=== PATIENT | male | born 1950 | race Caucasian/White ===

== ENCOUNTER 2024-06-09 08:52 | Outpatient (CLI) | payer OTHER, SELFPAY ==
--- NOTE | 2024-06-09 08:57 | CT_ITS ---
WS: [id number] CT FACIAL BONES HISTORY: CHRONIC SINUSITIS TECHNIQUE: Images obtained from the supraorbital location through the mandible. Soft tissue and bone windows are reviewed. Coronal and sagittal reformats have also been submitted. DLP: 1787.[address] scans at [facility] use at least one of these dose optimization techniques: automated e xposure control; mA and/or kV adjustment per patient size (includes targeted exams where dose is matc hed to clinical indication); or iterative reconstruction. COMPARISON: None available. No facial bone fractures or destructive bone lesions. Nasal bones and the zygomatic arches are normal . Normal appearance and position of the mandibular condyles. Orbits and globes are negative. No orbital fracture. Extraocular muscles are symmetric and normal in size. Mild mucoperiosteal thickening throughout the sinus cavities. There is no air-fluid level or si gnificant disease. Visualized appearance of the oropharynx on this unenhanced exam is negative. Upper cervical spine facet joint arthropathy. Small bilateral cervical chain lymph nodes. CT/CT facial bones wo con* [id number] IMPRESSION: 1. No facial bone fracture. 2. No destructive bone lesions. 3. Very mild mucoperiosteal thickening in the sinus cavities.
--- NOTE | 2024-06-09 08:57 | CT_ITS ---
WS: [id number] CT HEAD NONCONTRAST HISTORY: DAILY CHRONIC HEADACHES TECHNIQUE: Contiguous axial imaging performed through the brain in 3.0 mm imaging. Bone and soft tiss ue windows. Sagittal and coronal reformats reviewed. All CT scans at [facility] use at least one of these dose optimization techniques: automated exposure control; mA and/or kV adjustment per pa tient size (includes targeted exams where dose is matched to clinical indication); or iterative recon struction. DLP: 1787.08 mGy.cm COMPARISON: None available. No acute intracranial hemorrhage, midline shift or mass effect. Bilateral mild atrophy and small vessel disease. No mass effect. No midline shift. Ventricles: Normal size with no hydrocephalus. No inferior displacement of the cerebellar tonsils. Paranasal sinuses: As visualized are clear. Mastoid air cells: Well pneumatized. Calvarium and scalp: Skull is intact with no soft tissue edema or swelling. Calcified plaque in the intracranial carotid arteries. CT/CT head wo con* [id number] IMPRESSION: 1. No acute intracranial hemorrhage or edema. 2. Mild symmetric volume loss and atrophy with small vessel disease. No prior infarct.
== END 2024-06-09 08:53 | disposition home or self-care (01) ==
LOC: RAD 08:54
PROVIDERS: PCP Family Medicine; Visit Provider Family Medicine
DX: M47.892 Other spondylosis, cervical region (principal)
CPT/HCPCS: 70450; 70486

== ENCOUNTER 2024-07-01 14:58 | Outpatient (CLI) | payer OTHER, SELFPAY ==
--- NOTE | 2024-07-01 15:01 | USCV_ITS ---
Luther Diane Age: 74 Gender: M : 1950 Exam Date: 07/01/2024 15:13 Ordering Phys: Jen Cui MD Technologist: CT Exam [place] [facility] [place] Indication: Aortic Velocity @ SMA (cm/s) 79.3 RIGHT KIDNEY LEFT KIDNEY Velocity (cm/s) Velocity (cm/s) Sys/Arvizu Sys/Arvizu Resistive Index Resistive Index / Mid Renal Artery 46.0 / 21.5 0.53 78.7 / 34.8 0.56 Distal Renal Artery 47.6 / 19.9 0.58 40.4 / 23.0 0.43 Hilar 33.4 / 19.9 0.42 Renal Aortic Ratio 0.60 10.3 Kidney Length (cm) 11.5 FINDINGS prx renal arts are not visible bilaterally RADHAMES is not excluded other modality needed to exclude RADHAMES CONCLUSIONS Proximal Renal arteries not visualized bilaterally. Limited exam due to bowel gas Proximal Renal artery stenosis cannot be evaluated . Distal Renal arteries are patent Partially visualized Resistive indices normal bilaterally Hoang Mcarthur MD (Electronically Signed) Final Date: 05 July 2024 08:47 S
== END 2024-07-01 14:59 | disposition home or self-care (01) ==
LOC: RAD 14:59
PROVIDERS: PCP Family Medicine; Visit Provider Family Medicine
DX: I10 Essential (primary) hypertension (principal); R93.429 Abnormal radiologic findings on diagnostic imaging of unspecified kidney
CPT/HCPCS: 93975

== ENCOUNTER 2025-01-21 08:25 | Emergency (ER) | payer OTHER, MEDICARE, SELFPAY ==
--- NOTE | 2025-01-21 08:39 | XRR_ITS ---
PROCEDURE INFORMATION: Exam: XR Chest Exam date and time: 01/21/2025 9:04 AM Age: 74 years old Clinical indication: Cough and dyspnea; Additional info: Dyspnea/cough TECHNIQUE: Imaging protocol: Radiologic exam of the chest. Views: 1 view. COMPARISON: No relevant prior studies available. FINDINGS: Lungs: Unremarkable. No consolidation. Pleural spaces: Unremarkable. No pleural effusion. No pneumothorax. Heart/Mediastinum: Unremarkable. No cardiomegaly. Bones/joints: Unremarkable. XR/XR chest 1V portable [id number] IMPRESSION: No acute cardiopulmonary abnormality.
[2025-01-21 08:40] VITALS: BP 149/94; PULSE 104; RESP 17; TEMP 37.1; O2SAT 94; BMI 32.1
[2025-01-21 09:01] LABS: Basophils % 0.2 %; Eosinophils # 0.1 10^3/uL (0.0-0.8); Eosinophils % 1.3 %; Lymphocytes # 1.3 10^3/uL (0.8-4.8); Lymphocytes % 19.8 %; Mean Corpuscular Volume 88.2 fl (82-101); Mean Platelet Volume 9.6 fL (7.4-10.4); Monocytes # 0.8 10^3/uL (0.2-0.9); Monocytes % 11.8 %; Neutrophils # 4.24 10^3/uL (1.8-7.7); Neutrophils % 66.7 %; Nucleated Red Blood Cells % 0 %; Platelet Count 203 10^3/cmm (157-399); Red Blood Count 5.44 10^6/uL (3.85-5.65); Red Cell Distribution Width 12.3 % (12.1-15.1); White Blood Count 6.35 10^3/uL (3.29-11.43)
[2025-01-21] MEDS: sodium chloride 0.9% 1,000 ML 999 ML IV (09:24)
[2025-01-21 09:25] LABS: Alanine Aminotransferase 24 U/L (0-41); Albumin Level 4.1 g/dL (3.5-5.2); Alkaline Phosphatase 76 U/L (40-130); Anion Gap 19.2 (5-19); Aspartate Amino Transferase 27 U/L (0-40); Blood Urea Nitrogen 21 mg/dL (8-23); Calcium 9.6 mg/dL (8.5-10.5); Carbon Dioxide 24 mmol/L (22-29); Chloride 95 mmol/L (98-107); Creatinine Clr Calc Pharmacy 48.2836; Globulin 3.2 g/dL (1.3-4.6); Glucose 107 mg/dL (65-115); Magnesium 1.9 mg/dL (1.7-2.3); Osmolality Calculated 281 mOsm/kg (285-295); Potassium 4.2 mmol/L (3.5-5.1); Sodium 134 mmol/L (136-145); Total Bilirubin 0.6 mg/dL (0.15-1.2); Total Protein 7.3 g/dL (6.6-8.7)
--- NOTE | 2025-01-21 09:25 | W.ED.NAVMDI ---
HPI - Nausea/Vomiting/Diarrhea General: Chief complaint: Nausea/Vomiting/Diarrhea Stated complaint: n/v, diarrhea Time Seen by Provider: 01/21/25 08:35 History of Present Illness: 74-year-old male presents emergency room with nausea vomiting for the last 3 days some lower abdominal cramping. No hematochezia melena hematemesis cough cramps no dysuria urgency or frequency no shortness of breath or cough no fever. No chest pain or discomfort Associated nausea: Yes Associated symtoms: Reports nausea; Denies chest pain or dysuria Related Data Home Medications ?Medication ?Instructions ?Recorded ?Confirmed allopurinol 300 mg tablet 300 mg PO DAILY 01/21/25 01/21/25 amlodipine 5 mg tablet 5 mg PO DAILY 01/21/25 01/21/25 atorvastatin 40 mg tablet 40 mg PO DAILY 01/21/25 01/21/25 cyclobenzaprine 10 mg tablet 10 mg PO BEDTIME 01/21/25 01/21/25 fluticasone propionate 50 2 spray intranasal DAILY 01/21/25 01/21/25 mcg/actuation nasal spray,suspension levothyroxine 125 mcg tablet 125 mcg PO DAILY 01/21/25 01/21/25 meloxicam 15 mg tablet 15 mg PO DAILY 01/21/25 01/21/25 [id number] 3.3 2 drp otic (ear) BID 01/21/25 01/21/25 mg-3 mg-10 mg-0.5 mg/mL ear drops,susp (Cortisporin-TC) omeprazole 20 mg tablet,delayed 20 mg PO DAILY 01/21/25 01/21/25 release ondansetron HCl 4 mg tablet 4 mg PO Q6H PRN Nausea And Vomiting 01/21/25 01/21/25 Previous Rx's ?Medication ?Instructions ?Recorded promethazine 25 mg tablet 25 mg PO Q6H PRN nausea and 01/21/25 vomiting #20 tabs Allergies Allergy/AdvReac Type Severity Reaction Status Date / Time levofloxacin (From Levaquin) Allergy ADR-Gastrointestinal Verified 01/21/25 08:42 Upset Review of Systems Const: Denies: fever(s) or chills Card: Denies: chest pain Resp: Denies: dyspnea GI: Reports: nausea, vomiting and diarrhea; Denies: abdominal pain, hematemesis, coffee ground emesis, hematochezia or melena : Denies: dysuria, urinary frequency or urinary urgency Musc: Denies: neck pain or back pain Skin/Breast: Denies: rash PFSH ED PFSH: Medical History (Updated 01/21/25 @ 11:29 by Erik Lewis DO) Impaired glucose tolerance Physical Exam Const: COMMON NORMALS: no acute distress GENERAL APPEARANCE: cooperative and comfortable ORIENTATION/CONSCIOUSNESS: Yes awake, Yes oriented to person, Yes oriented to place and Yes oriented to time HENMT: COMMON NORMALS: normocephalic, atraumatic and hearing grossly normal bilaterally HEAD & SCALP: normocephalic and atraumatic Resp: COMMON NORMALS: normal respiratory effort, No retractions, No use of accessory muscles and clear to auscultation bilaterally AUSCULTATION: clear to auscultation bilaterally Cardio: COMMON NORMALS: regular rate, regular rhythm and No murmurs present (Cardio) RATE: regular rate RHYTHM: regular rhythm GI: COMMON NORMALS: Soft to palpation and No hepatosplenomegaly present AUSCULTATION: Yes normoactive bowel sounds PALPATION: Yes Soft to palpation, No Tenderness to palpation present (GI), No Guarding due to palpation present (GI) and Yes No hepatosplenomegaly present Extremity: COMMON NORMALS: normal to inspection, capillary refill normal, no clubbing, cyanosis or edema, no calf tenderness and no pedal edema Neuro: SENSORIUM/ORIENTATION: Yes oriented to person, Yes oriented to place and Yes oriented to time Skin: COMMON NORMALS: no rashes or lesions noted GENERAL SKIN EXAM: no rashes or lesions noted Course Vital Signs: Vital signs: Vital Signs Temperature 98.8 F 01/21/25 08:40 Pulse Rate 94 01/21/25 11:46 Respiratory Rate 17 01/21/25 08:40 Blood Pressure 149/94 01/21/25 11:46 Pulse Oximetry 95 01/21/25 11:46 Oxygen Delivery Me thod Room Air 01/21/25 10:35 MDM - Nausea/Vomiting/Diarrhea Medical Decision Making Exam unremarkable labs show mildly elevated creatinine we do not anything to compare to at previously BUN is in the normal range electrolytes are otherwise unremarkable very slight elevation of anion gap patient is feeling better after fluids will discharge home antiemetics clinical diet advance as tolerated believe he has a gastroenteritis encourage him to follow-up with to recheck his potassium within the next week. Medical Records I reviewed the patient's medical records. Lab Data 01/21/25 08:53 01/21/25 08:53 Radiology Impressions Chest X-Ray 01/21/25 08:39 IMPRESSION: No acute cardiopulmonary abnormality. Laboratory Results WBC 6.35 10^3/uL (3.29-11.43) 01/21/25 08:53 RBC 5.44 10^6/uL (3.85-5.65) 01/21/25 08:53 Hgb 16.30 g/dL (11.27-16.99) 01/21/25 08:53 Hct 48.0 % (37-53) 01/21/25 08:53 MCV 88.2 fl (82-101) 01/21/25 08:53 MCH 30.0 pg (27-33) 01/21/25 08:53 MCHC 34.0 g/dL (30-55) 01/21/25 08:53 RDW 12.3 % (12.1-15.1) 01/21/25 08:53 Plt Count 203 10^3/cmm (157-399) 01/21/25 08:53 MPV 9.6 fL (7.4-10.4) 01/21/25 08:53 Neut % (Auto) 66.7 % 01/21/25 08:53 Lymph % (Auto) 19.8 % 01/21/25 08:53 [place] % (Auto) 11.8 % 01/21/25 08:53 Eos % (Auto) 1.3 % 01/21/25 08:53 Baso % (Auto) 0.2 % 01/21/25 08:53 Neut # (Auto) 4.24 10^3/uL (1.8-7.7) 01/21/25 08:53 Lymph # (Auto) 1.3 10^3/uL (0.8-4.8) 01/21/25 08:53 [place] # (Auto) 0.8 10^3/uL (0.2-0.9) 01/21/25 08:53 Eos # (Auto) 0.1 10^3/uL (0.0-0.8) 01/21/25 08:53 Baso # (Auto) 0.0 10^3/uL (0.0-0.1) 01/21/25 08:53 Nucleated RBC % (auto) 0 % 01/21/25 08:53 Nucleated RBCs # 0.0 /100WBC 01/21/25 08:53 Sodium 134 mmol/L (136-145) L 01/21/25 08:53 Potassium 4.2 mmol/L (3.5-5.1) 01/21/25 08:53 Chloride 95 mmol/L (98-107) L 01/21/25 08:53 Carbon Dioxide 24 mmol/L (22-29) 01/21/25 08:53 Anion Gap 19.2 (5-19) H 01/21/25 08:53 BUN 21 mg/dL (8-23) 01/21/25 08:53 Creatinine 1.6 mg/dL (0.7-1.2) H 01/21/25 08:53 GFR Calculation Not Reportable 01/21/25 08:53 Glucose 107 mg/dL (65-115) 01/21/25 08:53 Calculated Osmolality 281 mOsm/kg (285-295) L 01/21/25 08:53 Calcium 9.6 mg/dL (8.5-10.5) 01/21/25 08:53 Magnesium 1.9 mg/dL (1.7-2.3) 01/21/25 08:53 Total Bilirubin 0.6 mg/dL (0.15-1.2) 01/21/25 08:53 AST 27 U/L (0-40) 01/21/25 08:53 ALT 24 U/L (0-41) 01/21/25 08:53 Alkaline Phosphatase 76 U/L (40-130) 01/21/25 08:53 Total Protein 7.3 g/dL (6.6-8.7) 01/21/25 08:53 Albumin 4.1 g/dL (3.5-5.2) 01/21/25 08:53 Globulin 3.2 g/dL (1.3-4.6) 01/21/25 08:53 Urine Color Yellow (Yellow) 01/21/25 11:29 Urine Appearance Clear (CLEAR) 01/21/25 11:29 Urine pH 5.5 (5-7) 01/21/25 11:29 Ur Specific [place] 1.025 (1.005-1.030) 01/21/25 11:29 Urine Protein 1+ (Negative) A 01/21/25 11:29 Urine Glucose (UA) Negative (Normal) 01/21/25 11:29 Urine Ketones 1+ (Negative) H 01/21/25 11:29 Urine Blood Negative (Negative) 01/21/25 11:29 Urine Nitrate Negative (Negative) 01/21/25 11: Urine Bilirubin Negative (Negative) 01/21/25 11:29 Urine Urobilinogen 1.0 mg/dL (Negative) 01/21/25 11:29 Ur Leukocyte Esterase Negative (Negative) 01/21/25 11:29 Urine RBC 0-2 /hpf (0-2) 01/21/25 11:29 Urine WBC 0-5 /hpf (0-5) 01/21/25 11:29 Ur Squamous Epith Cells 0-5 /hpf (0-5) 01/21/25 11:29 Amorphous Sediment Not Reportable 01/21/25 11:29 Urine Bacteria None seen /hpf (NONE) 01/21/25 11:29 Hyaline Casts 1.21 /lpf 01/21/25 11:29 XR interpretation done by ED provider, pending radiology final review Discharge Plan Discharge Patient Disposition: Home Clinical Impression: Gastroenteritis Condition: Stable Prescriptions: New promethazine 25 mg tablet 25 mg PO Q6H PRN (Reason: nausea and vomiting) Qty: 20 0RF No Action cyclobenzaprine 10 mg tablet 10 mg PO BEDTIME Cortisporin-TC 3.3-3-10-0.5 mg/mL drops,suspension 2 drp otic (ear) BID atorvastatin 40 mg tablet 40 mg PO DAILY meloxicam 15 mg tablet 15 mg PO DAILY ondansetron HCl 4 mg tablet 4 mg PO Q6H PRN (Reason: Nausea And Vomiting) amlodipine 5 mg tablet 5 mg PO DAILY levothyroxine 125 mcg tablet 125 mcg PO DAILY allopurinol 300 mg Tablet 300 mg PO DAILY fluticasone propionate 50 mcg/actuation spray,suspension 2 spray INTRANASAL DAILY omeprazole 20 mg Tablet,Delayed Release (Dr/Ec) 20 mg PO DAILY Discharge Orders: Discharge ED (Routine); Ordered 01/21/25 Ordered By: Erik Lewis Referrals: Jen Cui MD [Primary Care Provider, Family Practice] Discharge Diet: Usual diet Discharge Activity: Resume usual activity Patient Instructions: Gastroenteritis (ED), Opioid Safety, Pain Management Activity Restrictions/Additional Instructions: Thank you for choosing [facility] for your healthcare needs today. It is very important that you follow up as instructed or that you return to the Emergency Department should you have concerns or if your condition changes or worsens in any way. You are seen in the emergency room with complaints of nausea vomiting. Laboratory test did not show any significant acute abnormalities. Your kidney function is slightly elevated and this should be followed up with your primary care doctor. Recommend clear liquid diet for the next 2 to 3 days. You are also given antiemetics to use as needed. Chest x-ray and EKG were also normal Print Language: Yemeni Coding Level of Care Code ED Literacy Coordinator for Contreras Banerjee
[2025-01-21 10:35] VITALS: BP 147/87; PULSE 96; O2SAT 97
--- NOTE | 2025-01-21 10:56 | ECG_ITS ---
[facility] Test Date: 2025-01-21 Pat Name: Shaw Diane Department: Room: Gender: Male Wellness Program Manager: : 1950 Requested By: Erik Kee Order Number: [id number] Andrew MD: Madisyn Pond M.D. Measurements Intervals [place] Rate: 96 P: 55 AK: 168 QRS: -34 QRSD: 106 T: 52 QT: 329 QTc: 418 Interpretive Statements SINUS RHYTHM LEFT AXIS DEVIATION otherwise Normal No previous ECG available for comparison Electronically Signed On 01-21-2025 11:50:49 CDT by Madisyn Pond M.D. [email or web address]
[2025-01-21 11:39] LABS: Bilirubin Urine Negative (Negative); Blood Urine Negative (Negative); Glucose Urine UA Negative (Normal); Ketones Urine 1+ (Negative); Leukocyte Esterase Urine Negative (Negative); Nitrate Urine Negative (Negative); Protein Urine 1+ (Negative); Specific Gravity, Urine 1.025 (1.005-1.030); Urine Appearance Clear (CLEAR); Urine Color Yellow (Yellow); pH Urine 5.5 (5-7)
[2025-01-21 11:44] LABS: Add Urine Microscopic? YES; Bacteria Urine None Seen /hpf; Hyaline Casts Urine 1.21 /lpf; RBC Urine 0-2 /hpf (0-2); Squamous Epithelial Cell Urine 0-5 /hpf (0-5); WBC Urine 0-5 /hpf (0-5)
[2025-01-21 11:46] VITALS: BP 149/94; PULSE 94; O2SAT 95
== END 2025-01-21 11:47 | disposition home or self-care (01) ==
PROVIDERS: Emergency Provider Family Medicine; PCP Family Medicine
DX: K52.9 Noninfective gastroenteritis and colitis, unspecified (principal)
CPT/HCPCS: 71045; 80053; 81001; 83735; 85025; 93005; 99285; J7030

== ENCOUNTER 2025-04-12 14:21 | Emergency (ER) | payer OTHER, MEDICARE, SELFPAY ==
--- OUTSIDE RECORDS SUMMARY | 2024-12-01 08:50 | XMS_ITS ---
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 Name Role Phone THERESA THOMAS Primary Care Provider [phone] Allergies Allergen (clinical drug ingredient) Drug/Non Drug Allergy documented on EMR Reaction Allergy Type Onset Date Status Levaquin Unknown Drug Allergy Active REASON FOR VISIT LAST AWV 09/10/23, Annual Wellness Visit, Annual Medicare Wellness visit Social History Tobacco Use: Social History Observation Description Date Details (start date - stop date) Never Smoker NA - NA Tobacco Use/Smoking Question Answer Notes Tobacco use: nonsmoker Encounters Encounter Location Date Provider Diagnosis [facility] [address] [place] [address] 12/01/2024 THERESA THOMAS Essential hypertensi on I10 ; Type 2 diabetes mellitus with diabetic polyneuropathy E11.42 and Medicare annual wellness visit, subsequent Z00.00 Assessments Encounter Date Diagnosis (ICD Code) Assessment Notes Treatment Notes Treatment Clinical Notes Section Notes 12/01/2024 Essential hypertension (ICD-10 - I10) 12/01/2024 Type 2 diabetes mellitus with diabetic polyneuropathy (ICD-10 - E11.42) [facility] [place]-[id number]- 12/01/2024 Medicare annual wellness visit, subsequent (ICD-10 - Z00.00) Wellness completed vaccines discussed, Patient has been advised of eligibility for Advance Care Planning; Printed wellness recommendations are given in visit summary provided today. Plan Of Treatment Treatment Notes Assessment Notes Medicare annual wellness vis it, subsequent Wellness completed vaccines discussed, Patient has been advised of eligibility for Advance Care Planning; Printed wellness recommendations are given in visit summary provided today. Next Appt Details Follow Up: 1 Year AWV., Reas on: Provider Name:THERESA COOPER SON, 07/04/2025 01:30:00 PM, [address], [place], [address], Provider Name:THERESA COOPER SON, 01/03/2026 01:30:00 PM, [address], [place], [address], Progress Notes * BRIGIDA Luther WDOB:1950 (75 yo M)Acc No.[id number]:12/01/2024 Progress Note Patient: Luther SARAH Provider: Chilango THOMAS MD :1950 A ge:74 Y S ex:Male Date:12/01/2024 Address: [address], [id number] Subjective: * Chief Complaints: * 1 . LAST AWV 09/10/23. 2. Annual Wellness Visit. 3. Annual Medicare Wellness visit. * HPI: Alida berry Annual Visit: Here for annual Medicare wellness visit. Type of Visit - S ubsequent Annual Wellness Visit Language or Communication barrier addressed - Y es Health Risk Assessment - In the past month, how often did you experience pain? R cher - In the past month, how much has pain affected your ability to work? N ot at all - In the past month, how much has pain affected your ability to walk? A little - In the past month, how much has pain affected your relationship with other people? N ot at all - How would you describe the ease with which you can prepare your own food? E asy - How would you describe the ease with which you can bathe or clean yourself? E asy - How would you describe the ease with which you can dress yourself? E asy - How hard is it to use the toilet by yourself? N ot hard at all - How would you describe the ease with which you can do your own shopping? E asy - How would you describe the ease with which you can get around your house? E asy - How would you describe your ability to pay your bills? G ood - How would you describe your ability to plan your daily and monthly budgets? G ood - How would you describe your ability to do routine housework? G ood Immunization Status addressed - Y es Depression Screening - P HQ2 done Vision Screening - N ot done Hearing Screening D o you have trouble hearing? Y es, no gross abnormalities Fall Risk and Home Safety - N egative, no falls in the past year, no difficulty walking, or getting out of bed or chair G et Up and Go Evaluation u nder 20 seconds M edication evaluation and reconciliation performed Y es V ision screening recommended Y es L iterature offered to the patient N o Psychosocial Risks - N o overt psychosocial risks shown, observed, or mentioned Substance abuse (JACKY) risk assessed verbally, none found Behavioral Risks - P atient seems very well adjusted and no behavioral issues noted Activities of Daily Living - N ot impaired Cognitive Screening - N o overt cognitive deficiency is apparent by direct observation P atient Care Team: DME and Home health providers: None. - D r Elders. * Medical History: T ype 2 Diabetes: dx'd in 2013; controlled; complications include CKD; diet only, Hypertension (did not tolerate Metoprolol, Losartan, or Olmesartan), Sleep Apnea: was diagnosed, but does not tolerate CPAP., Gastroesophageal Reflux Disease., Osteoarthritis, Gout., Hypothyroidism, Renal Cell Carcinoma, right kidney; s/p cryotherapy Oct 2017, COLONOSCOPY- 11/11/23 Normal exam- Hx adenoma polyps in 2003, EYE EXAM: DUE NOW, [facility]: [facility], TETANUS: 2013, PNEUMONIA: 05/15/14, Pneumovax 23. 07/04/15, Prevnar 13, SHINGLES: 2013 and has had both Shingrix, COVID: moderna both doses, CURRENT MEDICAL PROVIDERS: Defence Intelligence Analyst: Dr Posada, [place], Urologist: Dr. Leiva, [facility] [place], LIVING WILL: Patient denies that he has a living will. * Surgical History: T onsillectomy; at age 9 . * Hospitalization/Major Diagno stic Procedure: C ox Kidney Treatment 11/26. * Family History: F ather: , at age 86; Cause of was Alzheimer's; Alzheimer's Disease. M other: , Hypertension; Hyperlipidemia; Transient Ischemic Attack. S ister: Medical history unknown; 2 sister(s) total. S on(s): Healthy; 2 son(s) total. D aughter(s): Healthy; 1 daughter(s) total; Allergies. * Social History: T obacco Use: T obacco Use/Smoking T obacco use: n onsmoker M igrated Social History: M igrated Social History: Occupation: Retired (Prior occupation: [employer]) Marital Status: . D rugs/Alcohol: D rugs H ave you used drugs other than those for medical reasons in the past 12 months? N o Do you drink alcohol?: No. * Allergies: L evaquin: Allergy. Objective: * Vitals: * Examination: G eneral Examination: GENERAL APPEARANCE: i n no acute distress, well developed, well nourished. EYES: p upils equal, round, reactive to light and accommodation. THROAT: c lear. NECK / THYROID: n chapo supple, full range of motion, no cervical lymphadenopathy. HEART: n o murmurs, regular rate and rhythm, S1, S2 normal.? LUNGS: c lear to auscultation bilaterally. ABDOMEN: l iver nontender, soft, nontender, nondistended.? BACK: n o kyphosis , no scoliosis. MUSCULOSKELETAL: c ervical spine normal. EXTREMITIES: n o edema. NEUROLOGIC: n onfocal , alert and oriented. PSYCH: a lert, oriented. Assessment: * Assessment: 1. E ssential hypertension - I10 (Primary) 2 . 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 M homer annual wellness visit, subsequent - Z00.00 Plan: * Treatment: * Procedure Codes: G 0439 MEDICARE ANNUAL WELLNESS SUBSEQUENT, G8427 DOC MEDS VERIFIED W/PT OR RE, G8510 NEG SCR D PT NOT ELIG F/U/PLN DOC * Preventive Medicine: MALE PREVENTIVE WELLNESS PLAN: B lood Pressure: The Recommended Frequency is: C ompleted today. V ision: The Recommended Frequency is: A nnual Glaucoma Screening with Eye Doctor. A bdominal Aortic Aneurysm: The Recommended Frequency is: O nce, between the age range of 65-75 and for those who have smoked 100+ cigarettes in lifetime C holesterol Testing: The Recommended Frequency is: R egularly beginning at age 20 with risk factors D iabetes Screening: The Recommended Frequency is: A nnually C olorectal Cancer Screening: The Recommended Frequency is: E very 10 years, Colonoscopy,Annually, Fecal Occult Blood Stool (FOBS) (either/or) P rostate Cancer Screening (Digital Rectal Exam [LARS]/Prostate Specific Antigen [PSA]): The Recommended Frequency is: A nnually, age 50 or older PSA lab draw. D epression Screening: The Recommended Frequency is: A s necessary for those with risk factors A lcohol Misuse Screening: The Recommended Frequency is: A s necessary for those with risk factors P neumococcal (Pneumonia) Vaccine: The Recommended Frequency is: p neumonia vaccine at age 50 for eligibles I nfluenza (Flu) Vaccine: The Recommended Frequency is: A nnually Usually in June. M ajor Risk Factors Your Major Risk Factors Include: R isk factors than can be modified include Inactivity, Poor eating choices, too much food and drink, clutter in the home that can cause falls, smoking and other tobacco, sleeping aids, excess salt and junk food,For best health and happiness YOU SHOULDExercise 20 minutes at least three times a weekAvoid all tobacco.If you have diabetes, keep it under control.Eat with awareness, pay attention to what and when.Take prescribed blood pressure, diabetic and cholesterol meds.Do not expect a pill to solve all of your problems.Attend to MENTAL HEALTH, avoid toxic conversations and readings. * Follow Up: 1 Year AWV. * Billing Information: * Visit Code: * Procedure Codes: G0439 MEDICARE ANNUAL WELLNESS SUBSEQUENT. G8427 DOC MEDS VERIFIED W/PT OR RE. G8510 NEG SCR D PT NOT ELIG F/U/PLN DOC. * Electronic signature of WILLY THOMAS MD on 04/12/2025 at 02:29 PM CDT Sign off status: Pending * Provider: Chilango THOMAS MD Date: 12/01/2024 Generated for Alisa pascal/Amy/Robbin on: 0 04/12/2025 02:29 PM CDT History and Physical Notes * HPI (History of Present Illness) Category Sub-Category Detail Notes Category Not es Medicare Annual Visit Type of Visit -: Subsequ ent Annual Wellness Visit Language or Communication barrier addressed -: Y es Health Risk Assessment - In the past thu, how often did you experience pain?: Rarely - In the past month, how muc h has pain affected your ability to work?: Not at all - In the past month, how much has pain a ffected your ability to walk?: A little - In the past month, how muc h has pain affected your relationship with other people?: Not at all - How would you describe the ease with which you can prepare your own food?: Easy - How would you describe the ease with which you can bathe or clean yourself?: Easy - How would you describe the ease with w hich you can dress yourself?: Easy - How hard is it to use the toilet by yo urself?: Not hard at all - How would you describe the ease with which you can do your own shopping?: Easy - How would you describe the ease with which you can get around your house?: Easy - How would you describe your ability to pay your bills?: Good - How would you describe you r ability to plan your daily and monthly budgets?: Good - How would you describe your ability to do routine housework?: Good Immunization Status addressed -: Yes Vision Screening -: Not done Depression Screening -: PHQ2 done Hearing Screening Do you have trouble hearing?: Yes, no gross abnormalities Fall Risk and Home Safety -: Negative, n o falls in the past year, no difficulty walking, or getting out of bed or chair Get Up and Go Evaluation: under 20 secon ds Medication evaluation and reconciliation performed: Yes Vision screening recommended: Yes Literature offered to the patient: No Psychosocial Risks -: No overt psychoso cial risks shown, observed, or mentioned Substance abuse (JACKY) risk assessed verbally, none found Behavioral Risks -: Patient seems mone y well adjusted and no behavioral issues noted Activities of Daily Living -: Not impaired Cognitive Screening -: No overt cognitiv e deficiency is apparent by direct observation Patient Care Team - Dr Slater Examination Category Sub-Category Detail Notes Category Not es General Examination GENERAL APPEARANCE: in no ac [place] distress, well developed, well nourished EYES: pupils equal, round, reactive to light and accommodation THROAT: clear NECK / THYROID: neck supple, full ra nge of motion, no cervical lymphadenopathy HEART: no murmurs, regular rate and rhythm, S1, S2 normal LUNGS: clear to auscultatio n bilaterally ABDOMEN: liver nontender, sof t, nontender, nondistended NEUROLOGIC: nonfocal , alert and oriented EXTREMITIES: no edema BACK: no kyphosis , no sco liosis MUSCULOSKELETAL: cervical spine medardo l PSYCH: alert, oriented
--- OUTSIDE RECORDS SUMMARY | 2024-12-21 04:30 | XMS_ITS ---
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 Name Role Phone THERESA THOMAS Primary Care Provider REASON FOR VISIT LAST WN 09/10/23 Encounters Encounter Location Date Provider Diagnosis [facility] [place] [address] [place] [address] 12/21/2024 THERESA THOMAS Plan Of Treatment Next Appt Details Provider Name:THERESA HERNANDEZ, 07/04/2025 01:30:00 PM, [address] [place], [address], Provider Name:THERESA COOPER SON, 01/03/2026 01:30:00 PM, [address], [place], [address], Progress Notes * Luther ALLRED WDOB:1950 (75 yo M)Acc No.[id number]:12/21/2024 Patient: Luther SARAH Provider: Chilango THOMAS MD :1950 A ge:74 Y S ex:Male Date:12/21/2024 [address] [id number] Subjective: * Chief Complaints: * 1 . LAST WN 09/10/23. * Medical History: Objective: * Vitals: Assessment: Plan: * Treatment: * Billing Information: * Visit Code: * Procedure Codes: * Electronic signature of WILLY THOMSA MD on 04/12/2025 at 02:30 PM CDT Sign off status: Pending * Provider: Chilango THOMSA MD Date: 0 12/21/2024 Generated for Alisa pascal/Amy/Robbin on: 0 04/12/2025 02:30 PM CDT
[2025-04-12 14:23] VITALS: BMI 32.6
--- OUTSIDE RECORDS SUMMARY | 2025-04-12 14:29 | XMS_ITS | Clinical Summary ---
Author Organization [facility] Address [address] [place] [address] Care Team Providers Care Risk Specialist Name Role Phone Carlos Loyd MD Primary Care Provider [phone] Allergies No known active allergies Medications dexlansoprazole (DEXILANT) 60 mg capsule Take 60 mg by mouth daily. Daily Active allopurinol (ZYLOPRIM) 300 mg tablet Take 300 mg by mouth daily. Daily Active levothyroxine 88 mcg Oral tablet Take 88 mcg by mouth daily autotransfusionist. Daily Active FAMOTIDINE ORAL Take by mouth. 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 Hypertrophy of nasal turbinates 06/19/2014 Nasal obstruction 06/19/2014 Unspecified sinusitis (chronic) 06/19/2014 Deviated nasal septum 06/19/2014 Immunizations Immunization Administration Dates Next Due Pneumococcal conjugate, unspecified formulation 06/06/2014 Social History Tobacco Use Types Packs/Day Years Used Date Smoking Tobacco: Never Smokeless Tobacco: Never Alcohol Use Standard Drinks/Week Comments Yes 0.8 (1 standard drink = 0.6 oz p ure alcohol) Sex and Gender Information Value Date Recorded Sex Assigned at Not on file Legal Sex Male 3:37 AM STABLE MANAGER Gender Identity Not on file Sexual Orientation Not on file Occupation Industry Job Start Date Job End Date Not on file Not on file Not on file Not on file Last Filed Vital Signs Vital Sign Reading Time Taken Comments Blood Pressure 143/93 07/21/2014 2:11 PM STABLE MANAGER Pulse 108 07/21/2014 2:11 PM STABLE MANAGER Temperature 36.4 C (97.6 F) 06/23/2014 2:30 PM CDT Respiratory Rate 18 06/23/2014 3:00 PM CDT Oxygen Saturation 96% 06/23/2014 3:00 PM CDT Inhaled Oxygen Concentration - - Weight 105.7 kg (233 lb) 07/21/2014 2:11 PM STABLE MANAGER Height 180.3 cm (5' 11 ) 07/21/2014 2:11 PM STABLE MANAGER Body Mass Index 32.5 07/21/2014 2:11 PM STABLE MANAGER Plan of Treatment Health Maintenance Due Date Last Done Comments DTAP/TDAP/TD VACCINES (1 - Tdap) 1967 PNEUMOCOCCAL VACCINE 50+ YEARS (1 of 1 - PCV) 03/11/19 98 06/06/2014 ZOSTER VACCINE (1 of 2) 1998 RSV VACCINE (60+ or ) (1 - 1-dose 75+ series) 2023 INFLUENZA VACCINE (#1) 2025 Insurance MEDICARE PART A AND B [facility] Member Subscriber Plan / Payer (Ef fective 2014-Present) Name:Shaw Diane Maryam Relation to Subscriber:Self Name:Shaw Diane Payer ID:Not on file Type:[employer] Address: [facility] [id number] [place] [id number] Care Teams Risk Specialist Relationship Specialty Start Date End Date Carlos Loyd MD [address] [facility], [place] [id number] PCP - General Family Practice 06/21/14
--- OUTSIDE RECORDS SUMMARY | 2025-04-12 14:29 | XMS_ITS | Encounter Summary ---
Author Organization [facility] Address [address] [place] [address] Care Team Providers Care Electronic Page Makeup System Operator Name Role Phone Carlos Loyd MD Primary Care Provider [phone] Reason for Visit * Reason Onset Date Comments Referral 02/04/2024 Encounter Details Date Type Department Care Team (Late st Contact Info) Description 02/04/2024 Telephone [facility] [address] [place] [address] Provider, Abstract NO ADDRESS ON FILE Referral Social History Tobacco Use Types Packs/Day Years Used Date Smoking Tobacco: Never Smokeless Tobacco: Never Alcohol Use Standard Drinks/Week Comments Yes 0.8 (1 standard drink = 0.6 oz p ure alcohol) Sex and Gender Information Value Date Recorded Sex Assigned at Not on file 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 * Telephone Encounter - Amber eSxton - 02/04/2024 2:53 PM CDT Pt returned call, would still like to schedule with Cardiology even though Dr Clark is not accepting new patients. [phone] * Telephone Encounter - Kailey Frost - 02/04/2024 1:57 PM CDT Called back ,no answer ,left vm. * Telephone Encounter - Monisha Pascual - 02/04/2024 1:12 PM CDT [facility] Call Center Communications Provider: Consult (requesting Dr Clark) MESSAGE Ready to schedule. Sometimes pt has poor cell medical office receptionist in his area and requests you leave a voice mail if no answer. [facility] Instructor Bridge: MARCIO Otto documented in this encounter Plan of Treatment Not on file documented as of this encounter Visit Diagnoses Not on filedocumented in this encounter Care Teams Electronic Page Makeup System Operator Relationship Specialty Start Date End Date Carlos Loyd MD [address] [place] [address] PCP - General Family Practice 06/21/14 documented as of this encounter
--- OUTSIDE RECORDS SUMMARY | 2025-04-12 14:29 | XMS_ITS | Patient Health Record ---
Author Organization [facility] Address [address] [place] [address] Support Name Relationship Address Phone WILMER ALLRED Guarantor Unknown [phone] Allergies Allergen (clinical drug ingredient) Drug/Non Drug Allergy documented on EMR Reaction Allergy Type Onset Date Status levofloxacin levoFLOXacin , Drug Allergy A ctive Reason For Referral No Information Medications Medication SIG (Take, Route, Frequency, Duration) Notes Start Date End Date Status Allopurinol 300 MG Oral Tablet Allopurinol 300 MG Oral Tablet 06/05/2011 Active Indomethacin 50 MG Oral Capsule Indomethacin 50 MG Oral Capsule 10/20/2017 Active Levothyroxine Sodium 0.088 MG Oral Capsule Levothyroxine Sodium 0.088 MG Oral Capsule 10/20/2017 Active Omeprazole Omeprazole 10/20/2017 Active meloxicam 15 MG Oral Tablet meloxicam 15 MG Oral Tablet 10/20/2017 Active Social History Social History Additional Details Category Social Info Options Details zzMigrated Social History Migrated Social History Smoking Status:Never smoked tobacco (finding) Plan Of Treatment No Information
--- OUTSIDE RECORDS SUMMARY | 2025-04-12 14:30 | XMS_ITS | Encounter Summary ---
Author Organization [facility] Address [address] [place] [address] Care Team Providers Care Electro Tech Name Role Phone Carlos Loyd MD Primary Care Provider [phone] Reason for Visit * Reason Onset Date Comments Needs Appointment 10/31/2024 Encounter Details Date Type Department Care Team (Late st Contact Info) Description 10/31/2024 Telephone [facility] [address] [place] [address] Provider, Abstract NO ADDRESS ON FILE Needs Appointment Social History Tobacco Use Types Packs/Day Years Used Date Smoking Tobacco: Never Smokeless Tobacco: Never Alcohol Use Standard Drinks/Week Comments Not Currently 0.8 (1 standard drink = 0.6 oz p ure alcohol) Sex and Gender Information Value Date Recorded Sex Assigned at Not on file Legal Sex Male 12:57 PM RADIO TIME SALES SUPERVISOR Gender Identity Not on file Sexual Orientation Not on file documented as of this encounter Miscellaneous Notes * Telephone Encounter - Zulema Huff - 10/31/2024 12:29 PM CST Referral (Provider) MESSAGE PT asking if he could schedule with Dr Ribeiro. Please call to advise. Thank you Cardiology Manual Lathe Operator: Traci Huff O TIME SALES SUPERVISOR * Telephone Encounter - Kailey Frost - 10/31/2024 11:54 AM CST Called patient back let him know isnt taking any more new consults tried to put him with he states he wants a male doctor and he will call back when ready so schedule. O TIME SALES SUPERVISOR * Telephone Encounter - Beata Perkins - 10/31/2024 11:30 AM CST [facility] Call Center Communications Provider: Caller: the patient MESSAGE Pt would like a call back to sched an appt and would like to be seen w/ Dr Arreguin. Cardiology Manual Lathe Operator: Beata Perkins O TIME SALES SUPERVISOR documented in this encounter Plan of Treatment Not on file documented as of this encounter Visit Diagnoses Not on filedocumented in this encounter Care Teams Electro Tech Relationship Specialty Start Date End Date Carlos Loyd MD [address] [place] [facility] [address] PCP - General Family Practice 06/21/14 documented as of this encounter
--- OUTSIDE RECORDS SUMMARY | 2025-04-12 14:30 | XMS_ITS | Clinical Summary ---
Author Organization [facility] Address [address] Attn: Epic Prelude ADT [place] [address] Care Team Providers Care Telephone Surveyor Name Role Phone Carlos Loyd MD Primary Care Provider [phone] Allergies Active Allergy Reactions Criticality Noted Date Comments Levofloxacin Nausea and Vomiting,Anxiety Low 2023 Medications amLODIPine (NORVASC) 5 mg tablet Take 1 Tablet (5 mg) by mouth daily. 30 Tablet 1 4 Active albuterol-budes onide 90-80 mcg/actuation HFA Aerosol Inhaler Take by inhalation. 2 Active omeprazole (PriLOSEC) 20 mg Capsule, Delayed Release(E.C.) Take 20 mg by mouth. 4 Active allopurinoL (ZYLOPRIM) 300 mg tablet Take 300 mg by mouth daily. Active aspirin (ECOTRIN EC) 81 mg Tablet, Delayed Release (E.C.) Take 81 mg by mouth. 4 Active cyclobenzaprine (FLEXERIL) 10 mg tablet TAKE 1 TABLET BY MOUTH EVERY 6 HOURS AT BEDTIME NEEDED 5 Active fluticasone propionate (FLONASE) 50 mcg/spray [place], Suspension nasal inhaler Administer in each nostril. 4 Active Synthroid 125 mcg tablet Take 125 mcg by mouth. 4 Active meloxicam (MOBIC) 15 mg tablet Take 1 Tablet by mouth daily. 5 Active ondansetron (ZOFRAN) 4 mg Tablet take 1 tablet by mouth every 6 hours as needed for nausea or vomiting 5 Active atorvastatin (LIPITOR) 40 mg tablet Take 1 Tablet (40 mg) by mouth daily. 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 Nasal obstruction 06/19/2014 Hypertrophy of nasal turbinates 06/19/2014 Deviated nasal septum 06/19/2014 Unspecified sinusitis (chronic) 06/19/2014 Encounters Date Type Department Care Team Description 03/22/2025 External Device Data ST[facility] ABSTRACTION Provider, Abstract 03/07/2025 External Device Data [facility] ABSTRACTION Provider, Abstract 03/07/2025 External Device Data [facility] ABSTRACTION Provider, Abstract 02/22/2025 External Device Data [facility] ABSTRACTION Provider, Abstract 02/21/2025 External Device Data [facility] ABSTRACTION Provider, Abstract 02/21/2025 External Device Data [facility] ABSTRACTION Provider, Abstract 01/26/2025 External Device Data [facility] ABSTRACTION Provider, Abstract 01/26/2025 External Device Data [facility] ABSTRACTION Provider, Abstract 01/25/2025 External Device Data [facility] ABSTRACTION Provider, Abstract 01/24/2025 External Device Data [facility] ABSTRACTION Provider, Abstract from Last 3 Months Immunizations Immunization Administration Dates Next Due Pneumococcal conjugate, unspecified formulation 06/06/2014 Social History Tobacco Use Types Packs/Day Years Used Date Smoking Tobacco: Never Smokeless Tobacco: Never Tobacco Cessation:Counseling Given: Not Answered Alcohol Use Standard Drinks/Week Comments Not Currently 0.8 (1 standard drink = 0.6 oz p ure alcohol) Sex and Gender Information Value Date Recorded Sex Assigned at Not on file Legal Sex Male 12:57 PM FLOOR CLERK Gender Identity Not on file Sexual Orientation Not on file Last Filed Vital Signs Vital Sign Reading Time Taken Comments Blood Pressure 166/99 01/09/2025 1:00 PM CDT Pulse 85 01/09/2025 1:30 PM CDT Temperature 37 C (98.6 F) 01/09/2025 10:19 AM CDT Respiratory Rate 19 01/09/2025 1:30 PM CDT Oxygen Saturation 95% 01/09/2025 1:30 PM CDT Inhaled Oxygen Concentration - - Weight 103.8 kg (228 lb 13.4 oz) 2024 10:19 AM CDT Height 177.8 cm (5' 10 ) 01/09/2025 10: 19 AM CDT Body Mass Index 32.83 01/09/2025 10:19 AM CDT Plan of Treatment Health Maintenance Due Date Last Done Comments RSV VACCINE (60+ or ) (1 - 1-dose 75+ series) 2023 INFLUENZA VACCINE (#1) 2025 , 07/01/2023, 08/19/2022, Additional history exists DTAP/TDAP/TD VACCINES (2 - T d or Tdap) 01/21/2027 01/21/2017 ZOSTER VACCINE Completed 04/27/2018, 01/21/2018 PNEUMOCOCCAL VACCINE 50+ YEARS Completed 0 10/26/2018, 07/24/2017, 06/06/2014 Insurance [facility] [id number] [facility] [employer] Advance Directives For more information, please contact: [phone] * Full Code (Latest Code Status on File) Date Activated Date Inactivated Comments 01/09/2025 9:20 AM 01/09/2025 4:09 PM Care Teams Telephone Surveyor Relationship Specialty Start Date End Date Carlos Loyd MD [address] [place] [address] PCP - General Family Practice 06/21/14
--- OUTSIDE RECORDS SUMMARY | 2025-04-12 14:30 | XMS_ITS | Patient Health Record ---
Author Organization [facility] Main Address [address] [place] [address], [place] [address] Care Team Providers Care Solderer Torch Name Role Phone THERESA THOMAS Primary Care Provider [phone] Allergies Allergen (clinical drug ingredient) Drug/Non Drug Allergy documented on EMR Reaction Allergy Type Onset Date Status Levaquin Unknown Drug Allergy Active Results Component Value Reference Range Notes MICROALBUMIN, QUANTITATIVE Reviewed date:12/01/2024 06:52:02 AM Interpretation: Performing Lab: Notes/Report: Draw Location: [facility] Testing performed at: [email or web address] [address] [place], [address], Mechanical Spreader Operator: Sadi Durham MD [facility] Collection Date/Time: [id number] [facility] Results Received Date/Time: [id number] [facility] Reported Date/Time: [id number] CREATININE, RANDOM URINE 122 20-320 mg/dL ALBUMIN, URINE 0.4 See Note: mg/dL Reference Range: Reference Range Not established ALBUMIN/CREATININE RATIO, RA NDOM URINE 3 <30 mg/g creat The ADA defines abnormalities in albumin excretion as follows: Albuminuria Category Result (mg/g creatinine) Normal to Mildly increased <30 Moderately increased 30-299 Severely increased > OR = 300 The ADA recommends that at least two of three specimens collected within a 3-6 month period be abnormal before considering a patient to be within a diagnostic category. Comprehensive Metabolic Pane l (CMP) Reviewed date:12/01/2024 06:52:02 AM Interpretation: Performing Lab: Notes/Report: Draw Location: [facility] fasting 8 hours Testing performed at: [address] [place] [address] CLIA ID [id number] Hemoglobin A1C (HbA1C) Reviewed date:12/01/2024 06:52:02 AM Interpretation: Performing Lab: Notes/Report: Draw Location: [facility] fasting 8 hours Testing performed at: [address] [address] CLIA ID [id number] Lipid Panel Reviewed date:12/01/2024 06:52:02 AM Interpretation: Performing Lab: Notes/Report: Draw Location: [facility] fasting 8 hours Testing performed at: [address] [address] CLIA ID [id number] Medicare Screening PSA Reviewed date:12/01/2024 06:52:02 AM Interpretation: Performing Lab: Notes/Report: Draw Location: [facility] fasting 8 hours Testing performed at: [address] [address] CLIA ID [id number] Reason For Referral No Information Medications Medication SIG (Take, Route, Frequency, Duration) Notes Start Date End Date Status amLODIPine Besylate 5 MG 1 tablet Orally Once a day; Duration: 90 days 09/15/2024 Active Meloxicam 15 MG TAKE 1 TABLET BY MOUTH EVERY DAY; Duration: 90 Active Lisinopril 20 MG 1 tablet Orally Once a day; Duration: 90 days 03/15/2024 Not-Taking Levothyroxine Sodium 125 MCG TAKE 1 TABL ET BY MOUTH IN THE MORNING ON AN EMPTY STOMACH. REPEAT LEVEL IN 3 MONTHS BY MOUTH EVERY DAY 90 DAYS; Duration: 90 Active methylPREDNISolone 4 MG as directed Oral ly Once a day; Duration: 5 days 11/03/2023 Not-Taking Omeprazole 20 MG 1 cap by mouth once daily Oral Once a day; Duration: 90 days Active Rosuvastatin Calcium 5 MG 1 tablet Orall y Once a day; Duration: 90 days 09/10/2023 Not-Taking Allopurinol 300 MG 1 tablet Orally Once a day; Duration: 90 days Active rOPINIRole HCl 0.5 MG TAKE 1 TABLET BY MOUTH EVERY NIGHT 1 TO 3 HOURS BEFORE BEDTIME; Duration: 90 Not-Taking Cyclobenzaprine HCl 10 MG TAKE 1 TABLET BY MOUTH EVERY DAY AT BEDTIME FOR 14 DAYS; Duration: 14 Active Fluticasone Propionate 50 MCG/ACT 2 SPRAYS IN EACH NOSTRIL NASAL ONCE A DAY FOR 30 DAYS; Duration: 90 Active Reglan 10 MG 30 min prior to starting colon prep Orally one time dose; Duration: 1 day 11/03/2023 Not-Taking Albuterol Sulfate HFA 108 (90 Base) MCG/ACT 2 puffs as needed for cough or wheeze Inhalation every 4 hrs; Duration: 30 days 06/15/2024 Active Olmesartan Medoxomil 5 MG as directed Or ally once daily; Duration: 90 days 05/13/2023 Not-Taking Cortisporin-TC 3.3-3-10-0.5 MG/ML 5 drops into affected ear Otic Three times a day; Duration: 10 days Active Immunizations Vaccine Route Administration Date Status Comme nts Flulaval Quad, Medicare Unknown 06/07/2021 Administered PPV 23* IM Intramuscular 05/15/2014 Administered Prevnar 13 IM Intramuscular 07/04/2015 Administered RSV, Arexvy IM Intramuscular 12/28/2024 Administered Tdap, Boostrix IM Intramuscular 09/10/2023 Administered Social History Tobacco Use: Social History Observation Description Date Details (start date - stop date) Never Smoker NA - NA Tobacco Use/Smoking Question Answer Notes Tobacco use: nonsmoker PHQ-2 Question Answer Notes Little interest or pleasure in doing things? Not at all 12/28/2024 Feeling down, depressed, or hopeless? Not at all Total Score 0 Problems Problem Type SNOMED Code ICD Code Onset Dates Problem Status W/U Status Risk Notes Problem Obesity (821347331) Other obesity (E66.8) Active confirmed Problem Mixed hyperlipidemia (368777703) Mixed hyperlipidemia (E78.2) Active confirmed Problem Chronic pain syndrome (584073306) Chronic pain syndrome (G89.4) Active confirmed Problem Gastro-esophageal reflux disease without esophagitis (453257104) Gastro-esophageal reflux disease without esophagitis (K21.9) Active confirmed Problem Essential hypertension (21546456) Essential hypertension (I10) Active confirmed Problem Chronic kidney disease stage 3A (disorder) (060614373) Chronic kidney disease, stage 3a (N18.31) Active confirmed Problem Body mass index 30.00 to 34.99 (994057441678061) BMI 31.0-31.9,adult (Z68.31) Active confirmed Problem Seasonal allergic rhinitis (865815671) Seasonal allergic rhinitis, unspecified trigger (J30.2) Active confirmed Problem Elevated PSA (556382277) Elevated PSA (R97.20) Active confirmed Problem BMI 30+ - obesity (975146576) BMI 32.0-32.9,adult (Z68.32) Active confirmed Problem History of polyp of colon (situation) (387461358) History of colon polyps (Z86.010) Active confirmed Problem Malignant tumor of kidney (693560977) Renal cell carcinoma of right kidney (C64.1) Active confirmed Problem Hypothyroidism (85545451) Other specified hypothyroidism (E03.8) 07/04/20 15 Active confirmed Boy-119 2830- Problem Polyneuropathy due to type 2 diabetes mellitus (142959791) Type 2 diabetes mellitus with diabetic polyneuropathy (E11.42) 07/04/20 15 Active confirmed Boy-119 2830- Problem Vitamin D deficiency (07265950) Vitamin D deficiency, unspecified (E55.9) 07/25/20 13 Active confirmed [id number] 2830- Problem Obstructive sleep apnea syndrome (disorder) (67657682) Obstructive sleep apnea (adult) (pediatric) (G47.33) 07/11/20 16 Active confirmed [id number] 2830- Problem Primary gout (58367681) Idiopathic gout, multiple sites (M10.09) 08/17/20 17 Active confirmed [id number]-119 2830- Problem Primary generalised osteoarthritis (258788497) Primary 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) 10/12/19 13 Active confirmed [id number]-119 2830- Problem Radiculopathy due to lumbar intervertebral disc disorder (731047748213463) Intervertebral disc disorders with radiculopathy, lumbar region (M51.16) 07/11/20 16 Active confirmed Boy-119 2830- Problem Overweight (423816072) Overweight (278.02) 10/12/19 13 Problem resolved confirmed [facility]-119 2830- Problem Gross hematuria (577066426) Gross hematuria (599.71) 12/10/19 14 Problem resolved confirmed [facility]-119 2830- Problem Elevated PSA (929620970) Elevated prostate specific antigen (PSA) (790.93) 07/05/20 12 Problem resolved confirmed Boy-119 2830- Problem Leukocytosis (351408303) Elevated white blood cell count, unspecified (D72.829) 02/25/20 17 Problem resolved confirmed [facility]-119 2830- Problem Vitamin deficiency (04023109) Deficiency of other vitamins (E56.8) 07/11/20 16 Problem resolved confirmed Boy-119 2830- Problem Pneumonia (489973674) Pneumonia, unspecified organism (J18.9) 09/17/19 16 Problem resolved confirmed Boy-119 2830- Problem Pain of right shoulder region (finding) (6032870619) Pain in right shoulder (M25.511) 12/23/19 17 Problem resolved confirmed [facility]-119 2830- Problem Pain in right foot (693136104218949) Pain in right foot (M79.671) 08/17/20 17 Problem resolved confirmed [facility]-119 2830- Problem Chronic kidney disease stage 2 (767471775) Chronic kidney disease, stage 2 (mild) (N18.2) 07/11/20 16 Problem resolved confirmed Boy-119 2830- Problem Urinary tract infectious disease (disorder) (03040419) Urinary tract infection, site not specified (N39.0) 07/10/20 16 Problem resolved confirmed Boy-119 2830- Problem Right lower quadrant pain (425933584) Right lower quadrant pain (R10.31) 02/25/20 17 Problem resolved confirmed Boy-119 2830- Problem Nausea (385770879) Nausea (R11.0) 12/23/19 17 Problem resolved confirmed Boy-119 2830- Problem Abnormal glucose level (629323649) Other abnormal glucose (R73.09) 07/11/20 16 Problem resolved confirmed Boy-119 2830- Problem Elevated PSA (582458977) Elevated prostate specific antigen [PSA] (R97.2) 07/14/20 13 Problem resolved confirmed Boy-119 2830- Problem Adult health examination (700965560) Encounter for general adult medical examination without abnormal findings (Z00.00) 07/11/20 16 Problem resolved confirmed Boy-119 2830- Problem Problem, abnormal examination (62127192) Encounter for general adult medical examination with abnormal findings (Z00.01) 07/13/20 17 Problem resolved confirmed Boy-119 2830- Problem Screening for malignant neoplasm of prostate (879373125) Encounter for screening for malignant neoplasm of prostate (Z12.5) 08/17/20 17 Problem resolved confirmed Boy-119 2830- Problem Elevated PSA (766244925) Elevated prostate specific antigen [PSA] (R97.20) 07/14/20 13 Problem resolved confirmed Boy-119 2830- Problem General examination of patient (613132934) Yearly physical exam (V70.0) 10/12/19 13 Problem resolved confirmed Boy-119 2830- Problem Chronic sinusitis (09637368) Chronic sinusitis, other (473.8) 05/15/20 14 Problem resolved confirmed Boy-119 2830- Problem Hyperglycemia (28969890) Hyperglycemia (790.6) 12/03/19 14 Problem resolved confirmed Boy-119 2830- Problem Acute sinusitis (disorder) (50999410) Acute sinusitis, other (461.8) 03/23/20 14 Problem resolved confirmed Boy-119 2830- Problem 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) Adenomatous colon polyps (235.2) 09/08/19 15 Problem resolved confirmed Boy-119 2830- Problem Pleurisy (284542408) Pleurisy (511.0) 07/22/20 12 Problem resolved confirmed Boy-119 2830- Problem General examination of patient (037080591) Annual exam (V70.0) 05/15/20 14 Problem resolved confirmed Boy-119 2830- Problem Eustachian tube dysfunction (11392579) Eustachian tube dysfunction (381.81) 03/23/20 14 Problem resolved confirmed Boy-119 2830- Problem Paresthesia of lower extremity (finding) (148158036) Lower limb paresthesia (782.0) 07/14/20 13 Problem resolved confirmed Boy-119 2830- Problem Low back pain (883677793) Low back pain (724.2) 07/14/20 13 Problem resolved confirmed Boy-119 2830- Problem Influenza immunization (29501065) Influenza immunization (V04.81) 08/10/20 14 Problem resolved confirmed Boy-119 2830- Problem Thyroid function tests abnormal (655780603) Nonspecific abnormality on thyroid function study (794.5) 07/14/20 13 Problem resolved confirmed Boy-119 2830- Problem Acute sinusitis (22061205) Acute sinusitis (461.8) 07/14/20 13 Problem resolved confirmed Boy-119 2830- Problem Cervical radiculopathy (32496976) Cervical radiculopathy (723.4) 01/08/20 13 Problem resolved confirmed [facility]- Problem Influenza vaccination (89628084) Influenza vaccination (V04.81) 08/05/20 12 Problem resolved confirmed [facility] 2830- Vital Signs Heart Rate 94 /min 12/28/2024 Temperature 98.7 degrees Fahrenheit 09/15/2024 Oximetry 95 % 12/28/2024 Blood pressure diastolic 84 mm Hg 12/28/2024 Weight-kg 103.87 kg 12/28/2024 Height 71 in 12/28/2024 Blood pressure systolic 142 mm Hg 12/28/2024 Weight 229 lbs 12/28/2024 BMI 31.94 kg/m2 12/28/2024 Encounters Encounter Location Date Provider Diagnosis [address] [place] [address] 05/11/2024 THERESA THOMAS Other chronic sinusi tis J32.8 ; Non-recurrent acute suppurative otitis media of right ear without spontaneous rupture of tympanic membrane H66.001 ; Trigeminal neuralgia G50.0 and Essential hypertension I10 [address] [place] [address] 06/15/2024 THERESA THOMAS Acute non-recurrent sinusitis of other sinus J01.80 and Essential hypertension I10 [address] [place] [address] 09/15/2024 THERESA THOMAS Acute non-recurrent sinusitis of other sinus J01.80 and Elevated troponin R79.89 [address] [place] [address] 11/15/2024 THERESA THOMAS Other low back pain M54.59 and Muscle strain T14.8XXA [address] [place] [address] 11/29/2024 THERESA THOMAS Mixed hyperlipidemia E78.2 ; Elevated PSA R97.20 and Type 2 diabetes mellitus with diabetic polyneuropathy E11.42 [address] [place] [address] 12/28/2024 THERESA MARTHA Medicare annual wellness visit, subsequent Z00.00 ; Type 2 diabetes mellitus with diabetic polyneuropathy E11.42 ; Obstructive sleep apnea (adult) (pediatric) G47.33 ; Chronic kidney disease, stage 3a N18.31 ; Renal cell carcinoma of right kidney C64.1 ; Chronic pain syndrome G89.4 ; History of colon polyps Z86.010 ; Other obesity E66.8 ; Mixed hyperlipidemia E78.2 ; Elevated PSA R97.20 ; Primary generalized (osteo)arthritis M15.0 ; Idiopathic gout, multiple sites M10.09 ; Essential hypertension I10 ; Vitamin D deficiency, unspecified E55.9 and BMI 31.0-31.9,adult Z68.31 [address] [place] [address] 05/18/2024 THERESA THOMAS [address] [place] [address] 09/28/2024 THERESA THOMAS [address] [place] [address] 01/10/2025 THERESA THOMAS Non-recurrent acute suppurative otitis media of right ear without spontaneous rupture of tympanic membrane H66.001 [address] [place] [address] 01/26/2025 THERESA THOMAS Other low back pain M54.59 [address] [facility] [address] 03/17/2025 THERESA THOMAS Assessments Encounter Date Diagnosis (ICD Code) Assessment Notes Treatment Notes Treatment Clinical Notes Section Notes 05/11/2024 Other chronic sinusitis (ICD-10 - J32.8) we are going to treat for a sinus infection. 06/15/2024 Acute non-recurrent sinusitis of other sinus (ICD-10 - J01.80) we will treat for a sinus infection with antibiotics and a steroid shot in clinic. 09/15/2024 Acute non-recurrent sinusitis of other sinus (ICD-10 - J01.80) we will treat sinus infection with antibiotics and a steroid shot. __ 09/15/2024 Elevated troponin (ICD-10 - R79.89) you likely need an angiogram. he states he will take care of it himself. 11/15/2024 Muscle strain (ICD-10 - T14.8XXA) 11/15/2024 Other low back pain (ICD-10 - M54.59) trial of anti-inflammatori es, steroids. from here, if pain continues, we can refer to physical therapy. 05/11/2024 Non-recurrent acute suppurative otitis media of right ear without spontaneous rupture of tympanic membrane (ICD-10 - H66.001) we will treat the ear infection with drops 11/29/2024 Mixed hyperlipidemia (ICD-10 - E78.2) 11/29/2024 Elevated PSA (ICD-10 - R97.20) 12/28/2024 Type 2 diabetes mellitus with diabetic polyneuropathy (ICD-10 - E11.42) [id number]- 12/28/2024 Medicare annual wellness visit, subsequent (ICD-10 - Z00.00) We reviewed the Medicare prevention and screening guidelines with the patient. Any services/screenin gs for which the patient was eligible were discussed and offered to the patient today (see orders for details). The patient was counseled regarding healthy lifestyle choices as well as avoiding accidents and injuries in their home. The patient's questions asked and answered. We formulated plans specific to their overall risk factors and discussed plan of care for existing chronic conditions. Labs ordered and/or reviewed. Follow up 12 months for AWV. 01/10/2025 Non-recurrent acute suppurative otitis media of right ear without spontaneous rupture of tympanic membrane (ICD-10 - H66.001) 01/26/2025 Other low back pain (ICD-10 - M54.59) 12/28/2024 Obstructive sleep apnea (adult) (pediatric) (ICD-10 - G47.33) [id number]- The patient states they are using their cpap nightly for at least four hours. They have derived significant benefit from this treatment and desire to continue using the device. 06/15/2024 Essential hypertension (ICD-10 - I10) 11/29/2024 Type 2 diabetes mellitus with diabetic polyneuropathy (ICD-10 - E11.42) [id number]- 05/11/2024 Trigeminal neuralgia (ICD-10 - G50.0) short course of steroids to help with sinus infection and with pain from possible trigeminal neuralgia. if this does not help, consider lyrica. 05/11/2024 Essential hypertension (ICD-10 - I10) elevated pressure in office. we did recently increase the lisinopril. he does not take it. he says the 20mg is too low. when asked how low was too low, he stated 120s/60s. encouraged him to record his pressures and take the medication as directed. 12/28/2024 Chronic kidney disease, stage 3a (ICD-10 - N18.31) Your lab values indicate some degree of kidney impairment, which is referred to as chronic kidney disease (CKD). The diagnosis and level of kidney dysfunction is determined by lab values. Milder levels of CKD are VERY COMMON in persons over 60...in fact, the vast majority of persons over 60 have at least mild impairment that is age-related, and unlikely to progress to more severe disease, if properly managed. One measure of kidney function is a creatinine level. Creatinine is a muscle breakdown product that can vary widely according to age, gender, and muscle mass. For this reason, measuring creatinine alone is not a reliable evaluation of kidney function across diverse populations. The easiest and most reliable measure for evaluating kidney function is called the glomerular filtration rate (GFR) which can be estimated (eGFR) by a persons' lab creatinine level, age, gender and (according to some authorities) race. Most labs (including ours) will automatically generate an eGFR on every patient who has a creatinine level measured, and will provide both eGFRAA () and eGFRNAA (non-), since race demographics are not always readily available to the clinical lab equipment. A normal eGFR level is greater than 90. CKD-1 describes a person with normal eGFR (> 90) who has a finding of persistent protein in the urine (proteinuria). This condition can be a precursor for the other progressive levels of CKD. CKD-2, or mild CKD, is defined by eGFR of 60-89. CKD-3, or moderate CKD, is defined by eGFR of 30-59. CKD-4, or severe CKD, is defined by eGFR of 15-29. CKD-5, or end-stage CKD/renal disease, is defined by an e-GFR of < 15. Most patients in this range will require dialysis. Why is addressing CKD important? Obviously, the progression to severe CKD is one that we would like to identify early and prevent. With appropriate precautions, progression from mild to end-stage CKD can be avoided altogether. Therefore, when we identify the early stages, we should respond by initiating CKD precautions and rechecking the eGFR at appropriate intervals. In order to signal your insurance to pay for appropriate labs, we must have an appropriate diagnosis code. The appropriate diagnosis code for CKD enables payment by your insurance for the labs needed to monitor CKD. What you can do: CKD PRECAUTIONS 1) Control blood pressure. High blood pressure is a leading cause of kidney disease. Normal blood pressure should be < 130 / < 80. If your blood pressure is not controlled, you need to contact your doctor to pursue treatment for better control. 2) Maintain adequate hydration. Dehydration stresses the kidneys. You should drink a minimum of 64 oz of WATER daily. If you have congestive heart failure, or have been advised to not drink too many fluids, check with your doctor to see what level of fluid intake may be most appropriate for your situation. 3) Avoid the use of non-steroidal anti-inflammatory drugs (NSAIDs). Over the counter (Motrin/ibuprofen , Aleve/naproxen) and prescription NSAIDs (Celebrex, meloxicam, Voltaren) can damage the kidneys if taken regularly. Occasional use is not typically associated with problems, but as an alternative, Tylenol (acetaminophen) does not cause kidney damage when taken in recommended doses, and may be a good alternative for patients with CKD. Ask your doctor when and if NSAIDs are needed so that you can avoid causing further damage to the kidney function. 4) Get regular check ups and lab work. Once yearly may be adequate monitoring for CKD-2 and CKD-3, while a change in the level of CKD or progression to CKD-4 or higher may warrant more frequent evaluation. With monitoring, your doctor can help you avoid progression of your kidney disease. Worsening CKD may warrant further evaluation with urine studies, kidney imaging by ultrasound, or even referral to a kidney specialist (in flight crew member). 12/28/2024 Renal cell carcinoma of right kidney (ICD-10 - C64.1) 12/28/2024 Chronic pain syndrome (ICD-10 - G89.4) 12/28/2024 History of colon polyps (ICD-10 - Z86.010) 12/28/2024 Other obesity (ICD-10 - E66.8) 12/28/2024 Mixed hyperlipidemia (ICD-10 - E78.2) 12/28/2024 Elevated PSA (ICD-10 - R97.20) 12/28/2024 Primary generalized (osteo)arthritis (ICD-10 - M15.0) [id number]- 12/28/2024 Idiopathic gout, multiple sites (ICD-10 - M10.09) [id number]- 12/28/2024 Essential hypertension (ICD-10 - I10) High blood pressure is a major cause of complications, such as stroke, heart disease, blindness and kidney damage. It is very important to keep blood pressure under control. If you are on medication, make sure that you are taking it every day at the appropriate time. If you are having problems with your medication, such as side effects, that are keeping you from taking it, please let us know as soon as possible. Normal, well-controlled blood pressure is between 110-130 mmHg on the top (systolic BP) and between 65-80 mmHg on the bottom (diastolic BP). When you check your blood pressure, you should be seated for 5 minutes, relax and chill out before beginning the measurement. Make sure that the cuff you are using is an appropriate size for your arm, as a cuff that is too small will give falsely elevated readings and too large will give falsely depressed readings. Do not cross your legs or talk while the blood pressure is being measured as this will cause inaccurate readings. We encourage patients with high blood pressure to check their readings periodically at home. Sometimes, office readings can be falsely elevated due to the white coat effect of being at a clinic. If your home readings are consistently out of the range described above, please call our office to discuss what adjustments might need to be made to your treatment regimen. There are alternatives to medication may help control your blood pressure. Ask your doctor before stopping any medication. The DASH diet (www.dashdiet.org ) is a diet plan that can help lower blood pressure, and focuses on removing often-hidden sources of sodium (salt) from your diet. Exercise also helps to lower blood pressure and can help maintain a healthy weight and reduce stress. You should avoid decongestants and other stimulants, because these medications can further elevate the blood pressure. 12/28/2024 Vitamin D deficiency, unspecified (ICD-10 - E55.9) [id number]- 12/28/2024 BMI 31.0-31.9,adult (ICD-10 - Z68.31) Plan Of Treatment Pending Test Test Name Order Date Influenza A/B 05/27/2023 Next Appt Details Provider Name:THERESA HERNANDEZ, 07/04/2025 01:30:00 PM, [address], [place], [address], Provider Name:THERESA HERNANDEZ, 01/03/2026 01:30:00 PM, [address], [place], [address], Insurance Providers Payer Name Payer Address Payer Phone Subscriber Number Group Number Insured Name Patient Relationship to Insured Coverage Start Date Coverage End Date [employer] ADV [address] [address] [place] [phone] [id number] Luther Diane Self - patient is the insured Medications Administered Medication Instructions Date of Administration Dosage Notes Betamethasone 08/05/2021 2 mL [id number] Betamethasone 06/15/2024 2 mL LOT: [id number] NDC: 5026-8738-12 Betamethasone 09/15/2024 2 mL LOT: [id number] NDC: 2422-2672-87 [id number]-40 02/23/2024 2 mL [id number] 06/2025 [id number] Sodium 05/27/2023 1 g did two 500mg vials okay'd by Liliana Palencia LOT: [id number] EX: 04/2024 ND: [address]-5 GTIN: [id number] Medical (General) History Medical History History ICD Code Type 2 Diabetes: dx'd in 201 4; controlled; complications include CKD; diet only Hypertension (did not tolerate Metoprolo l, Losartan, or Olmesartan) Sleep Apnea: was diagnosed, but does not tolerate CPAP. Gastroesophageal Reflux Disease. Osteoarthritis Gout. Hypothyroidism Renal Cell Carcinoma, right kidney; s/p cryotherapy Oct 2017 COLONOSCOPY- 11/11/23 Normal exam- Hx lisa meenu polyps in 2003 EYE EXAM: DUE NOW INFLUENZA: [facility] TETANUS: 2023 PNEUMONIA: 05/15/14, Pneumovax 23. 5, Prevnar 13 SHINGLES: 2013 and has had both Shingrix COVID: moderna both doses CURRENT MEDICAL PROVIDERS: O phthalmologist: Dr Posada, [place], Urologist: Dr. Leiva, [facility] [place] LIVING WILL: Patient denies that he has a living will Surgical History Surgery Date(Month/Year) Tonsillectomy; at age 9 Hospitalization History Reason Date(Month/Year) [facility] 11/26
[2025-04-12 14:55] LABS: Hematocrit 43.7 % (37-53); Hemoglobin 15.00 g/dL (11.27-16.99); Mean Corpuscular HGB Conc 34.3 g/dL (30-55); Mean Corpuscular Hemoglobin 30.6 pg (27-33); Mean Corpuscular Volume 89.2 fl (82-101); Nucleated Red Blood Cells % 0 %; Platelet Count 188 10^3/cmm (157-399); Red Blood Count 4.90 10^6/uL (3.85-5.65); White Blood Count 10.71 10^3/uL (3.29-11.43)
--- NOTE | 2025-04-12 15:01 | W.ED.NAVMDI ---
HPI - Nausea/Vomiting/Diarrhea General: Chief complaint: Nausea/Vomiting/Diarrhea Stated complaint: N/V/D Chills Fever shingles shot 04/11/25 Time Seen by Provider: 04/12/25 14:34 History of Present Illness: 75-year-old gentleman with history of hypertension presents to ED due to nausea, vomiting, diarrhea. Patient states 5 stools today that were all diarrhea in nature, not on black or bloody, bilious enemas too numerous to count. No abdominal pain. He denies feeling low-grade fever Associated nausea: Yes Associated symtoms: Reports nausea; Denies anxiety, change in vision, chest pain, headache(s) or palpitations Related Data Home Medications ?Medication ?Instructions ?Recorded ?Confirmed allopurinol 300 mg tablet 300 mg PO DAILY 01/21/25 04/12/25 amlodipine 5 mg tablet 5 mg PO DAILY 01/21/25 04/12/25 atorvastatin 40 mg tablet 40 mg PO DAILY 01/21/25 04/12/25 cyclobenzaprine 10 mg tablet 10 mg PO BEDTIME 01/21/25 04/12/25 fluticasone propionate 50 2 spray intranasal DAILY 01/21/25 04/12/25 mcg/actuation nasal spray,suspension levothyroxine 125 mcg tablet 125 mcg PO DAILY 01/21/25 04/12/25 meloxicam 15 mg tablet 15 mg PO DAILY 01/21/25 04/12/25 omeprazole 20 mg tablet,delayed 20 mg PO DAILY 01/21/25 04/12/25 release ondansetron HCl 4 mg tablet 4 mg PO Q6H PRN Nausea And Vomiting 01/21/25 04/12/25 hhmpjuxi-smirxryxk-ehykiuxzn 3.5 5 drp otic (ear) TID 04/12/25 04/12/25 mg-10,000 unit/mL-1 % ear drops,susp Previous Rx's ?Medication ?Instructions ?Recorded ondansetron 4 mg disintegrating 4 mg PO Q8H PRN nausea and 04/12/25 tablet vomiting 4 days #14 tabs Allergies Allergy/AdvReac Type Severity Reaction Status Date / Time levofloxacin (From Levaquin) Allergy ADR-Gastrointestinal Verified 04/12/25 14:30 Upset Review of Systems Const: Denies: fever(s) or chills Eyes: Denies: change in vision or blurry vision ENMT: Denies: throat pain or odynophagia Card: Denies: chest pain or palpitations Resp: Denies: dyspnea or non-productive cough GI: Reports: nausea, vomiting and diarrhea; Denies: abdominal pain : Denies: flank pain or difficulty urinating Musc: Denies: neck pain or back pain Skin/Breast: Denies: rash or pruritus Neuro: Reports: numbness in extremities; Denies: headache(s) Psych: Denies: anxiety or depression PFSH ED PFSH: Medical History (Updated 04/12/25 @ 16:39 by SERGIO Gray) Impaired glucose tolerance Physical Exam Const: COMMON NORMALS: no acute distress, average body habitus, patient oriented x3 and no limitations HENMT: COMMON NORMALS: normocephalic, atraumatic and Normal external nose present HEAD & SCALP: normocephalic and atraumatic FACE & SINUS: normal facial exam and sinuses nontender NOSE: Normal external nose present and Normal nares present MOUTH: Normal oral and palatal mucosa present and tongue normal Eye: COMMON NORMALS: Equal, round and reactive pupils present and EOMs intact bilaterally PUPIL: Yes Equal, round and reactive pupils present Neck/C-Spine: COMMON NORMALS: full ROM and no lymphadenopathy Lymph: LYMPHATIC: no lymphadenopathy noted Chest: COMMONS NORMALS: normal inspection of the chest Resp: COMMON NORMALS: normal respiratory effort, No retractions and clear to auscultation bilaterally AUSCULTATION: clear to auscultation bilaterally Cardio: COMMON NORMALS: regular rate and regular rhythm RATE: regular rate RHYTHM: regular rhythm GI: COMMON NORMALS: Normal to inspection, nondistended, normoactive bowel sounds present, Soft to palpation and non-tender PALPATION: Yes Soft to palpation : COMMON NORMALS: Yes no CVA tenderness BLADDER/KIDNEY EXAM: Yes no CVA tenderness Back/Pelvis: COMMON NORMALS: no CVA tenderness Extremity: COMMON NORMALS: normal to inspection, full ROM and capillary refill normal Neuro: COMMON NORMALS: patient oriented x3 Psych: COMMON NORMALS: mental status grossly normal and Normal thought process present THOUGHT PROCESS: Normal thought process present Skin: COMMON NORMALS: no rashes or lesions noted and no wounds GENERAL SKIN EXAM: no rashes or lesions noted Course Reevaluation(s): Reevaluation #1: Unable to obtain IV times multiple attempts. Will give Benadryl IM and try oral hydration. Labs without any concerns at this time. Vital Signs: Vital signs: Vital Signs Blood Pressure 156/94 04/12/25 16:31 Pulse Oximetry 95 04/12/25 16:31 Oxygen Delivery Me thod Room Air 04/12/25 16:27 MDM - Nausea/Vomiting/Diarrhea Medical Decision Making Patient is a 75-year-old gentleman that had multiple attempts for IVs that failed due to not being able to place it in his vein, and blowing his vein. He did tolerate 50 mg of Benadryl IM, and oral hydration without emesis. No further stools here, and therefore no stool culture or additional evaluation was done. Patient will be encouraged to return to his primary care physician to ensure this clears, and antiemetics, clear liquids. He did not have any red flags or concerns during his evaluation here. This does appear to be a side effect of the shingle vaccine, however will defer that to his primary care physician. Lab Data 04/12/25 14:45 04/12/25 14:45 Laboratory Results WBC 10.71 10^3/uL (3.29-11.43) 04/12/25 14:45 RBC 4.90 10^6/uL (3.85-5.65) 04/12/25 14:45 Hgb 15.00 g/dL (11.27-16.99) 04/12/25 14:45 Hct 43.7 % (37-53) 04/12/25 14:45 MCV 89.2 fl (82-101) 04/12/25 14:45 MCH 30.6 pg (27-33) 04/12/25 14:45 MCHC 34.3 g/dL (30-55) 04/12/25 14:45 RDW 13.2 % (12.1-15.1) 04/12/25 14:45 Plt Count 188 10^3/cmm (157-399) 04/12/25 14:45 MPV 10.1 fL (7.4-10.4) 04/12/25 14:45 Neut % (Auto) 83.6 % 04/12/25 14:45 Lymph % (Auto) 9.8 % 04/12/25 14:45 Cache % (Auto) 5.8 % 04/12/25 14:45 Eos % (Auto) 0.1 % 04/12/25 14:45 Baso % (Auto) 0.4 % 04/12/25 14:45 Neut # (Auto) 8.96 10^3/uL (1.8-7.7) H 04/12/25 14:45 Lymph # (Auto) 1.1 10^3/uL (0.8-4.8) 04/12/25 14:45 Cache # (Auto) 0.6 10^3/uL (0.2-0.9) 04/12/25 14:45 Eos # (Auto) 0.0 10^3/uL (0.0-0.8) 04/12/25 14:45 Baso # (Auto) 0.0 10^3/uL (0.0-0.1) 04/12/25 14:45 Nucleated RBC % (auto) 0 % 04/12/25 14:45 Nucleated RBCs # 0.0 /100WBC 04/12/25 14:45 Sodium 131 mmol/L (136-145) L 04/12/25 14:45 Potassium 4.2 mmol/L (3.5-5.1) 04/12/25 14:45 Chloride 93 mmol/L (98-107) L 04/12/25 14:45 Carbon Dioxide 23 mmol/L (22-29) 04/12/25 14:45 Anion Gap 19.2 (5-19) H 04/12/25 14:45 BUN 16 mg/dL (8-23) 04/12/25 14:45 Creatinine 1.3 mg/dL (0.7-1.2) H 04/12/25 14:45 GFR Calculation Not Reportable 04/12/25 14:45 Glucose 143 mg/dL (65-115) H 04/12/25 14:45 Calculated Osmolality 276 mOsm/kg (285-295) L 04/12/25 14:45 Calcium 9.4 mg/dL (8.5-10.5) 04/12/25 14:45 Total Bilirubin 1.0 mg/dL (0.15-1.2) 04/12/25 14:45 AST 20 U/L (0-40) 04/12/25 14:45 ALT 19 U/L (0-41) 04/12/25 14:45 Alkaline Phosphatase 93 U/L (40-130) 04/12/25 14:45 Total Protein 7.2 g/dL (6.6-8.7) 04/12/25 14:45 Albumin 4.3 g/dL (3.5-5.2) 04/12/25 14:45 Globulin 2.9 g/dL (1.3-4.6) 04/12/25 14:45 Lipase 22 U/L (13-60) 04/12/25 14:45 Urine Color Yellow (Yellow) 04/12/25 16:22 Urine Appearance Clear (CLEAR) 04/12/25 16:22 Urine pH 7.0 (5-7) 04/12/25 16:22 Ur Specific [place] 1.022 (1.005-1.030) 04/12/25 16:22 Urine Protein Trace (Negative) A 04/12/25 16:22 Urine Glucose (UA) Negative (Normal) 04/12/25 16:22 Urine Ketones Trace (Negative) 04/12/25 16:22 Urine Blood Negative (Negative) 04/12/25 16:22 Urine Nitrate Negative (Negative) 04/12/25 16:22 Urine Bilirubin Negative (Negative) 04/12/25 16:22 Urine Urobilinogen 1.0 mg/dL (Negative) 04/12/25 16:22 Ur Leukocyte Esterase Negative (Negative) 04/12/25 16:22 Urine RBC 0-2 /hpf (0-2) 04/12/25 16:22 Urine WBC 0-5 /hpf (0-5) 04/12/25 16:22 Ur Squamous Epith Cells 0-5 /hpf (0-5) 04/12/25 16:22 Amorphous Sediment Not Reportable 04/12/25 16:22 Urine Bacteria None seen /hpf (NONE) 04/12/25 16:22 Hyaline Casts 0-4 /lpf H 04/12/25 16:22 No radiology studies performed this visit Discharge Plan Discharge Patient Disposition: Home Clinical Impression: Gastroenteritis Condition: Stable Prescriptions: New ondansetron 4 mg tablet,disintegrating 4 mg PO Q8H PRN (Reason: nausea and vomiting) 4 Days Qty: 14 0RF No Action [id number] 3.5-10,000-1 mg/mL-unit/mL-% drops,suspension 5 drp otic (ear) TID cyclobenzaprine 10 mg tablet 10 mg PO BEDTIME atorvastatin 40 mg tablet 40 mg PO DAILY meloxicam 15 mg tablet 15 mg PO DAILY ondansetron HCl 4 mg tablet 4 mg PO Q6H PRN (Reason: Nausea And Vomiting) amlodipine 5 mg tablet 5 mg PO DAILY levothyroxine 125 mcg tablet 125 mcg PO DAILY allopurinol 300 mg Tablet 300 mg PO DAILY fluticasone propionate 50 mcg/actuation spray,suspension 2 spray INTRANASAL DAILY omeprazole 20 mg Tablet,Delayed Release (Dr/Ec) 20 mg PO DAILY Discharge Orders: Discharge ED (Routine); Ordered 04/12/25 Ordered By: Kristine Ballard Referrals: Jen Cui MD [Primary Care Provider, [facility]] Discharge Diet: Clear Liquid Discharge Activity: Resume usual activity Patient Instructions: Patient Portal & Mello Instructions Activity Restrictions/Additional Instructions: Obtain liquid Benadryl, take 25 mg/up to every 4 hours for nausea. Do not exceed greater than every 6 hours and ondansetron. Sip on clear liquids only. Do not advance to full liquid diet until you are tolerating clear liquid diet for 24 hours. Return to ED for worsening vomiting, diarrhea, fever greater than 100.4 ?F Print Language: Monegasque Coding Level of Care Code ED Vault Manager for Contreras Banerjee
[2025-04-12 15:06] VITALS: BP 127/102; O2SAT 94
[2025-04-12 15:08] LABS: Alanine Aminotransferase 19 U/L (0-41); Albumin Level 4.3 g/dL (3.5-5.2); Alkaline Phosphatase 93 U/L (40-130); Aspartate Amino Transferase 20 U/L (0-40); Blood Urea Nitrogen 16 mg/dL (8-23); Calcium 9.4 mg/dL (8.5-10.5); Carbon Dioxide 23 mmol/L (22-29); Chloride 93 mmol/L (98-107); Creatinine Clr Calc Pharmacy 58.9860; Globulin 2.9 g/dL (1.3-4.6); Glucose 143 mg/dL (65-115); Lipase 22 U/L (13-60); Osmolality Calculated 276 mOsm/kg (285-295); Sodium 131 mmol/L (136-145); Total Protein 7.2 g/dL (6.6-8.7)
[2025-04-12 15:11] LABS: Anion Gap 19.2 (5-19); Potassium 4.2 mmol/L (3.5-5.1)
[2025-04-12 15:34] VITALS: O2SAT 93
[2025-04-12] MEDS: diphenhydrAMINE 50 mg/mL SDV 1mL IM (16:04)
[2025-04-12 16:27] VITALS: O2SAT 96
[2025-04-12 16:31] VITALS: BP 156/94; O2SAT 95
[2025-04-12 16:38] LABS: Glucose Urine UA Negative (Normal); Nitrate Urine Negative (Negative); Specific Gravity, Urine 1.022 (1.005-1.030)
[2025-04-12 16:41] LABS: Add Urine Microscopic? YES
[2025-04-12 17:12] VITALS: BP 150/92; PULSE 113; RESP 16; O2SAT 93
== END 2025-04-12 17:12 | disposition home or self-care (01) ==
PROVIDERS: Emergency Medicine; Emergency Provider Physician Assistant; PCP Family Medicine
DX: R68.83 Chills (without fever) (principal); K52.9 Noninfective gastroenteritis and colitis, unspecified
CPT/HCPCS: 80053; 81001; 83690; 85025; 96372; 99284; J1200